=== PATIENT | male | born 1960 | race Caucasian/White ===

== ENCOUNTER 2016-11-11 23:42 | Emergency (ER) | payer OTHER ==
[2016-11-12 00:27] VITALS: BP 127/76
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
== END 2016-11-12 00:43 | disposition home or self-care (01) ==
LOC: ER 23:42
DX: S21.109D Unspecified open wound of unspecified front wall of thorax without penetration into thoracic cavity, subsequent encounter (principal); Z48.00 Encounter for change or removal of nonsurgical wound dressing; Z43.9 Encounter for attention to unspecified artificial opening

== ENCOUNTER 2016-11-14 14:45 | Emergency (ER) | payer OTHER ==
--- NOTE | 2016-11-14 17:03 | ERNOTE ---
Medical Problem HPI - Narrative Date of Service: 11/14/16 - General Chief Complaint: General Assessment Time Seen by Provider: 11/14/16 16:57 Source: patient Exam Limitations: no limitations - Immun/Allergies/Home Medications Immunizations: IMMUNIZATION HX Immunizations Up to Date Yes History of Influenza Vaccine No Hx Pneumococcal Vaccination No Allergies/Adverse Reactions: Allergies oxycodone HCl [From Percocet] Adverse Reaction (Mild, Verified 11/04/15 09:07) N/V, HIVES propoxyphene napsylate [From Darvocet-N 100] Adverse Reaction (Mild, Verified 09:07) Hives Home Medications: HOME MEDICATIONS Gabapentin [Gralise] 300 mg PO TID 03/18/13 [Last Taken Unknown] Ibuprofen [Motrin] 800 mg PO TID PRN 03/18/13 [Last Taken Unknown] Albuterol Sulfate [Albuterol Sulfate Hfa] 2 puff IH Q4H PRN 11/23/13 [Last Taken Unknown] Aspirin [Aspirin Enteric Coated] 81 mg PO DAILY 11/23/13 [Last Taken Unknown] Cyclobenzaprine HCl [Flexeril] 10 mg PO TID PRN 11/23/13 [Last Taken Unknown] Omeprazole [Prilosec] 40 mg PO DAILY 11/23/13 [Last Taken Unknown] traMADol HCL [Ultram] 50 - 100 mg PO QID PRN 11/23/13 [Last Taken Unknown] traZODone HCL [Oleptro ER] 150 mg PO HS 12/28/14 [Last Taken Unknown] - History of Present History Narrative: patient here for a dressing change to his chest tube and suture sites. Date (Duration): 11/14/16 Timing: unsure Review of Systems - Narrative Narrative: patient needed his chest tube site dressing changed and 2 other lac sites that are sutured. - Review of Systems Constitutional: Present: no symptoms reported EYE: Present: no symptoms reported ENT: Present: no symptoms reported Respiratory: Present: no symptoms reported, See HPI. Absent: shortness of breath, cough Gastrointestinal/Abdominal: Present: no symptoms reported Genitourinary: Present: no symptoms reported Musculoskeletal: Present: no symptoms reported Skin: Present: See HPI Neurological: Present: no symptoms reported Endocrine: Present: no symptoms reported Hematologic/Lymphatic: Present: no symptoms reported Psych: Present: no symptoms reported - Patient's Past Medical History Patient History - Medical: Chronic Pain, Headache Patient History - Cardiac/Respiratory: COPD Patient History - Cancer: No Hx of Cancer Patient History - Surgical Procedures: Other Patient History - Other: None - Family History Mother Family History - Medical: Diabetes Type 2 Insulin Dependent Family History - Cardiac/Respiratory: No pertinent hx - Social History Living Situations: home Abuse History: No History of abuse Psych History: No pertinent hx Smoking Status: Former smoker Alcohol Use: sober Drug Use: none - Immunizations Immunizations Up to Date: Yes Hx Pneumococcal Vaccination: No History of Influenza Vaccine: No Physical Exam - Physical Exam Narrative: patients exam is negative. dressings changed by [employer] FI[employer] and teaching to his about how to change his dressings and what to look for at chest tube site for s/ s of infection and subq air. General Appearance: Present: wd/wn, alert, no apparent distress Eye Exam: Normal inspection: bilateral Ears, Nose, Throat: Present: normal ENT inspection Neck: Present: normal inspection, nontender Respiratory: Present: no respiratory distress, normal breath sounds, no accessory muscle use, lungs clear, chest tenderness - has several broken ribs. . Absent: decreased breath sounds Cardiovascular/Chest: Present: regular rate, rhythm, no murmur, normal peripheral pulses Gastrointestinal/Abdominal: Present: normal bowel sounds, nontender, nondistended, soft, no organomegaly Back Exam: Present: normal inspection Extremity Exam: Present: normal inspection, normal range of motion, no edema Neurological Exam: Present: alert, oriented, normal mood/affect, no motor/ sensory deficits Skin Exam: Present: normal color, warm/dry Lymphatic Exam: Present: no adenopathy ED Progress - Vital Signs Patient's Vital Signs:: I have reviewed the patient's vital signs. Vital Signs: Vital Signs 11/14/16 15:00 Temperature 37.4 C Pulse Rate 80 Respiratory 16 Rate Blood Pressure 142/80 O2 Sat by Pulse 98 Oximetry - Progress/Reassessment Chief Complaint: General Assessment Progress:: Unchanged Plan - Plan Plan: taught about dressing changes and assessing sites. Stated she now felt comfortable changing his dressing. Departure - Departure Clinical Impression: Visit for wound care Disposition: Home Follow Up Needed Condition: Stable Instructions: Personal Hygiene, Sterile Tape Wound Care, Wound Infection, Easy- to-Read, How to Change Your Dressing, [id number], Surgical Site Infections FAQs - BOWER, Stitches, Willis, or Adhesive Wound Closure, [id number], Sutured Wound Care, [id number] Additional Instructions: Continue any previous home medications as directed. Return to the emergency rooms if any of the sites develop signs or symptoms of infection or left chest tube site developed subcutaneous air as per our discussion. Make sure you attend follow-up appointment on . Continue any previous discharge instructions given to you by trauma team at the outside hospital. Referrals: Pedro Ferris MD [Primary Care Provider] -
[2016-11-14 17:12] VITALS: BP 157/87
== END 2016-11-14 17:11 | disposition home or self-care (01) ==
LOC: ER 14:45
DX: Z48.00 Encounter for change or removal of nonsurgical wound dressing (principal); Z87.891 Personal history of nicotine dependence

== ENCOUNTER 2017-02-11 12:42 | Emergency (ER) | payer OTHER ==
[2017-02-11] MEDS ORDERED: KETOROLAC TROMETHAMINE 60 MG/2 ML VIAL IM ONE ×2 (13:03→13:08)
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
[2017-02-11 15:04] VITALS: BP 142/86
== END 2017-02-11 15:31 | disposition home or self-care (01) ==
LOC: ER 12:42
DX: S46.002A Unspecified injury of muscle(s) and tendon(s) of the rotator cuff of left shoulder, initial encounter (principal); S22.42XS Multiple fractures of ribs, left side, sequela; F17.200 Nicotine dependence, unspecified, uncomplicated; V29.9XXA Motorcycle rider (driver) (passenger) injured in unspecified traffic accident, initial encounter; Y92.410 Unspecified street and highway as the place of occurrence of the external cause; V89.2XXS Person injured in unspecified motor-vehicle accident, traffic, sequela

== ENCOUNTER 2017-05-11 06:34 | Day surgery (SDC) | payer OTHER ==
[~2017-05-11 06:34] MED LIST: RINGER'S SOLUTION,LACTATED 1,000 ML IV PRN; ceFAZolin SODIUM 1 GM VIAL IV PRN
[2017-05-11] MEDS ORDERED: RINGER'S SOLUTION,LACTATED 1,000 ML IV ONE (07:10)
--- NOTE | 2017-05-11 09:40 | OR ---
Anesthesia Procedure Note - Anesthesia Procedure Note Date of Service: 05/11/17 Narrative: Vital Signs - Last Taken Temp 36.7 C 05/11/17 09:30 Pulse 82 05/11/17 09:30 Resp 18 05/11/17 09:30 BP 149/91 05/11/17 09:30 Pulse Ox 100 05/11/17 09:30 O2 Oxygen Delivery Method Nasal Cannula 05/11/17 09:38 ANESTHESIA PROCEDURE NOTE Date of Procedure: 05/11/2017 Time of procedure: 8 AM. Performed by: NAFISA Scherer CRNA, MSN [employer] Chemist: Anju Juarez RN. Preprocedure diagnosis: Left shoulder surgery. Post procedure diagnosis: Same. Procedure: Left Interscalene nerve block. Indications: Post left shoulder surgery pain relief. Findings: See below. Details of the procedure: The patient was brought to OR #4 and placed in semi- Fowlers position. The patient was prepped with chlorhexidine and using ultrasound guidance the left interscalene segment of the brachial plexus was identified and lidocaine 1% was infiltrated to the skin of the intended injection site. Under ultrasound guidance the interscalene nerve bundles were approached with visualization of a 2inch stimulator needle visualized unde ultrasound until a shoulder/arm response was identified on nerve stimulator. Once the stimulator response was effective at less than 0.5 mV and greater than 0.3 mV the bracheal plexus nerves at this level were surrounded with 30 mL bupivacaine 0.25% with 1-200,000 epinephrine. Please see radiology/ultrasound report for details and retained images of the procedure. EBL: 0 Fluids: N/A. Specimen: N/A. Post procedure condition: The patient tolerated the procedure well. No complications were noted. Thank you for this consultation. Tani Barakat CRNA, LITERACY COORDINATOR, MSN
[2017-05-11 11:01] VITALS: BP 130/78
--- NOTE | 2017-05-11 11:39 | OR ---
Operative Report - Dictated Report Narrative: Date: 05/11/2017 Physician: Caden Jordan M.D. Landing Gear Mechanic: Juan Recio PA-C Preoperative diagnosis: Left Shoulder massive rotator cuff tear, bicipital tenosynovitis Postoperative diagnosis: Left shoulder massive, irreparable rotator cuff tear, SLAP tear, bicipital tenosynovitis Procedure: Left shoulder arthroscopy with biceps tenotomy, rotator cuff debridement Anesthesia: General plus regional Complications: None Estimated blood loss: Minimal Specimens: None Retained implants: None Drains: None Indications: Jeronimo Is a 56 year-old male who has been followed in my clinic with complaints of shoulder pain consistent with rotator cuff tear and bicipital tenosynovitis. Physical exam and diagnostic imaging were consistent with his complaints and concern for massive rotator cuff tear and biceps tenosynovitis. Conservative measures have failed including, but not limited to, passage of time , activity modification, medications, physical therapy/home exercise program, or injections. The risks, benefits, and alternatives were discussed in clinic. The risks being , bleeding, infection, blood clots, nerve, tendon, ligament, blood vessel injury, persistent pain, arthrosis, stiffness, need for prolonged therapy, need for additional procedures, and persistent symptoms. Consent was obtained in the clinic. Procedure: After marking the correct extremity in the preoperative holding area, a timeout was performed in the operating room. IV antibiotics consisting of 1 g of Ancef was administered prior to the procedure. A general followed by regional anesthetic was induced by the nurse quality improvement specialist. This was in the supine position, then the patient was transitioned to a beachchair position with all bony prominences well-padded, head in neutral, the nonoperative arm well supported, and the legs padded with SCDs in place. The operative shoulder was then prepped and draped in a standard sterile fashion. Preoperatively the shoulder had full passive range of motion, and no appreciable instability. After marking out the bony landmarks, saline was infused into the joint through a posterior lateral portal site. A venice incision was made, and the blunt trocar and cannula was introduced into the shoulder joint. An anterior working portal was placed in the rotator cuff interval using a spinal needle for guidance. Upon initial evaluation, the biceps tendon showed evidence of inflammation but no tearing. The middle glenohumeral ligament was intact. Subscapularis tendon was frayed with some tendinopathy but intact. The glenoid showed mild degenerative change. The humeral head articular surface showed grade 1 chondral changes. The anterior labrum was frayed but intact. The superior labrum demonstrated a degenerative type II tear. The pouch was of normal caliber with no loose bodies. The posterior labrum was frayed but intact. The supraspinatus tendon was completely torn and retracted past the level of the glenoid with significant scarring. The infraspinatus tendon was mostly torn and retracted. The teres insertion was intact. Attention was then turned to the subacromial space. Subacromial bursectomy was performed utilizing the prior portals. The coracoacromial ligament was frayed but intact. The bursal side of the rotator cuff demonstrated the aforementioned massive rotator cuff tear. The acromial arch demonstrated normal morphology with no anterior hooking. Based on the arthroscopic findings, as well as exam and radiographic findings, it was elected to proceed with a biceps tenotomy. Arthroscopic scissors were introduced through the anterior portal and the biceps tendon was tenotomized at the bicipital anchor. A 4.0 mm shaver was used to debrided the residual tendon as well as the bicipital anchor at the labrum. The superior labrum was then lightly debrided. At this point we turned our attention to the rotator cuff. Blunt dissection with the probe, shaver, and radiofrequency ablation device was used to attempt to free up the supraspinatus tendon from its scarred in position. We attempted to grasp what little stump of tendon was left and try to pull it over to the footprint however the remaining tendon was extremely friable and could not be rolled over to the insertion. It was at this point we felt that the massive rotator cuff tear was not repairable. We lightly debrided the residual rotator cuff tendon. At this point we felt we had addressed all the intra-articular pathology that we could address. Fluid was then evacuated from the joint and all arthroscopic instruments and cannulas were removed. Portal sites were closed with interrupted nylon. Dressings consisting of Xeroform, 4 x 4, ABD, soft roll, and tape were applied. All sponge, needle, blade, and instrument counts were correct prior to closing the wounds. The patient was awoken and transferred to the postanesthesia care unit in stable condition.
== END 2017-05-11 06:35 | disposition home or self-care (01) ==
LOC: AMB 06:34
PROVIDERS: ATTEND Orthopaedic Surgery
PROC: 3E0T3BZ Introduction of Anesthetic Agent into Peripheral Nerves and Plexi, Percutaneous Approach (ICD-10-PCS; 2017-05-11)
PROC: 0RBK4ZZ Excision of Left Shoulder Joint, Percutaneous Endoscopic Approach (ICD-10-PCS; principal; 2017-05-11 08:00)
DX: M75.122 Complete rotator cuff tear or rupture of left shoulder, not specified as traumatic (principal); S43.432A Superior glenoid labrum lesion of left shoulder, initial encounter; M75.22 Bicipital tendinitis, left shoulder; I25.10 Atherosclerotic heart disease of native coronary artery without angina pectoris; J44.9 Chronic obstructive pulmonary disease, unspecified; E78.5 Hyperlipidemia, unspecified; K21.9 Gastro-esophageal reflux disease without esophagitis; M17.11 Unilateral primary osteoarthritis, right knee; Z87.891 Personal history of nicotine dependence; Z68.23 Body mass index [BMI] 23.0-23.9, adult